=== PATIENT | female | born 1955 | race Caucasian/White ===

== ENCOUNTER 2021-06-13 15:46 | Inpatient (IN) | payer MEDICARE, MEDICAID ==
[~2021-06-13] VITALS: Ht 165.1 cm; Wt 111.6 kg
[2021-06-13] MEDS ORDERED: MORPHINE SULFATE 4 MG/ML CPJ (NOT FOR IM USE) IV STA (18:38)
[2021-06-13] MEDS ORDERED: ONDANSETRON HCL 4MG/2ML INJ IV STA (18:38)
[2021-06-13] MEDS ORDERED: SODIUM CHLORIDE 0.9% 1,000 ML IV ONE (18:45)
[2021-06-13 20:34] LABS: BASOPHILS % 0.3 % (0.0-2.0); HEMOGLOBIN. 13.7 g/dL (12.0-16.0); LYMPHOCYTES % 20.5 % (20.0-50.0); MEAN CORPUSCULAR HEMOGLOBIN 30.8 pg (28.0-32.0); MEAN CORPUSCULAR VOLUME 89.8 fL (81.0-99.0); MEAN PLATELET VOLUME 7.8 fl (7.4-10.4); MONOCYTES % 7.8 % (2.0-8.0); NEUTROPHILS % 68.4 % (40.0-76.0); PLATELET 200 x1000/uL (130-400); RED BLOOD CELL COUNT 4.45 mill/uL (4.2-5.4); RED CELL DISTRIBUTION WIDTH 13.3 % (11.6-14.6)
[2021-06-13 20:44] LABS: CHLORIDE 99 mEq/L (98-107)
[2021-06-13 20:46] LABS: PROTHROMBIN TIME 10.5 sec (9.6-11.0)
[2021-06-13] MEDS ORDERED: MORPHINE SULFATE 4 MG/ML CPJ (NOT FOR IM USE) IV PRN (23:30)
[2021-06-14] MEDS ORDERED: HYDROCODONE/ACETAMINOPHEN 5/325MG TABLET PO PRN (00:30)
[2021-06-14] MEDS ORDERED: LORAZEPAM 2MG/ML CPJ IV PRN (00:30)
[2021-06-14] MEDS ORDERED: SODIUM CHLORIDE 0.45% 1,000 ML IV SCH (00:30)
[2021-06-14] MEDS ORDERED: NA PHOS,M-B/NA PHOS,DI-BA ENEMA 118ML PR PRN (00:30)
[2021-06-14] MEDS ORDERED: IPRATROPIUM/ALBUTEROL 0.5-3(2.5)MG/3ML NEB NEB PRN (00:30)
[2021-06-14] MEDS ORDERED: MAGNESIUM/ALUMINUM HYDROXIDE/SIMETHICONE 30ML UDC PO PRN (00:30)
[2021-06-14] MEDS ORDERED: DIPHENHYDRAMINE 50MG/ML VIAL IV PRN (00:30)
[2021-06-14] MEDS ORDERED: DOCUSATE SODIUM 100MG CAPSULE PO PRN (00:30)
[2021-06-14] MEDS ORDERED: CLONIDINE 0.1MG TABLET PO PRN (00:30)
[2021-06-14] MEDS ORDERED: ONDANSETRON HCL 4MG/2ML INJ IV PRN (00:30)
[2021-06-14] MEDS ORDERED: GUAIFENESIN 200MG/10ML SUGAR FREE UDC PO PRN (00:30)
[2021-06-14] MEDS ORDERED: ACETAMINOPHEN 325MG TABLET PO PRN (00:30)
[2021-06-14] MEDS ORDERED: NALOXONE HCL 0.4MG/ML VIAL IV PRN (00:45)
[2021-06-14 02:20] VITALS: BP 133/50
[2021-06-14] MEDS ORDERED: LOSA1TAB40 MT (02:55)
[2021-06-14] MEDS ORDERED: METO25TA6 MT (02:55)
[2021-06-14 04:00] VITALS: BP 133/50
[2021-06-14] MEDS ORDERED: DEXTROSE 50% WATER 50ML SYRINGE IV PRN (04:00)
[2021-06-14] MEDS: MORPHINE SULFATE 2 MG/ML CPJ (NOT FOR IM USE) IV PRN (05:29)
[2021-06-14] MEDS: BLOOD SUGAR DIAGNOSTIC STRIP TEST SCH ×4 (07:41→21:07)
[2021-06-14 08:00] VITALS: BP 114/55
[2021-06-14] MEDS ORDERED: ENOXAPARIN 40MG/0.4ML SYR SUBCUT SCH (09:00)
[2021-06-14] MEDS: INSULIN LISPRO 100 UNITS/ML SUBCUT SCH ×4 (09:45→21:14)
[2021-06-14 12:00] VITALS: BP 133/68
[2021-06-14 16:00] VITALS: BP 114/52
[2021-06-14 20:00] VITALS: BP 143/71
[2021-06-14] MEDS: ENOXAPARIN 30MG/0.3ML SYR SUBCUT SCH (21:01)
[2021-06-15] VITALS: BP 133/62
[2021-06-15] MEDS: MORPHINE SULFATE 2 MG/ML CPJ (NOT FOR IM USE) IV PRN ×2 (03:34→23:42)
[2021-06-15 04:00] VITALS: BP 137/67
[2021-06-15 06:23] LABS: BASOPHILS % 0.4 % (0.0-2.0); HEMATOCRIT. 39.4 % (36.0-48.0); HEMOGLOBIN. 13.4 g/dL (12.0-16.0); LYMPHOCYTES % 20.8 % (20.0-50.0); MEAN CORPUSCULAR HEMOGLOBIN 30.5 pg (28.0-32.0); MEAN CORPUSCULAR VOLUME 89.8 fL (81.0-99.0); MEAN PLATELET VOLUME 8.7 fl (7.4-10.4); MONOCYTES % 7.3 % (2.0-8.0); NEUTROPHILS % 67.5 % (40.0-76.0); PLATELET 164 x1000/uL (130-400); RED BLOOD CELL COUNT 4.39 mill/uL (4.2-5.4); RED CELL DISTRIBUTION WIDTH 13.1 % (11.6-14.6)
[2021-06-15 06:31] LABS: CHLORIDE 100 mEq/L (98-107)
[2021-06-15 06:51] LABS: LDL CHOLESTEROL 134 mg/dL (5-100)
[2021-06-15 06:52] LABS: HDL CHOLESTEROL 35 mg/dL (40-59); T4 FREE 1.34 ng/dL (0.76-1.46)
[2021-06-15 08:00] VITALS: BP 116/64
[2021-06-15] MEDS: BLOOD SUGAR DIAGNOSTIC STRIP TEST SCH ×4 (08:11→21:13)
[2021-06-15] MEDS: ENOXAPARIN 30MG/0.3ML SYR SUBCUT SCH ×2 (09:04→21:06)
[2021-06-15] MEDS: INSULIN LISPRO 100 UNITS/ML SUBCUT SCH ×4 (09:16→21:08)
[2021-06-15 12:00] VITALS: BP 136/76
[2021-06-15 16:00] VITALS: BP 146/82
[2021-06-15 20:00] VITALS: BP 136/63
[2021-06-16] VITALS: BP 142/82
[2021-06-16 04:00] VITALS: BP 139/71
[2021-06-16] MEDS: BLOOD SUGAR DIAGNOSTIC STRIP TEST SCH ×2 (06:57→12:15)
[2021-06-16 08:00] VITALS: BP 140/84
[2021-06-16] MEDS: ENOXAPARIN 30MG/0.3ML SYR SUBCUT SCH (09:00)
[2021-06-16] MEDS: INSULIN LISPRO 100 UNITS/ML SUBCUT SCH ×2 (10:16→12:42)
[2021-06-16 12:00] VITALS: BP 142/68
[2021-06-16 16:00] VITALS: BP 145/77
[2021-06-16 16:48] VITALS: BP 145/77
== END 2021-06-16 17:31 | disposition home or self-care (01) | DRG 555 ==
LOC: ER 15:46 → EDBD 15:46 → 6EST 23:00 → CANRESERV 23:52 → ENRESERV 23:52 → EDBEDREQ 06-14 02:12
PROVIDERS: ADMIT Internal Medicine; ATTEND Internal Medicine
DX: M25.551 Pain in right hip (principal); G93.41 Metabolic encephalopathy; E86.0 Dehydration; M19.90 Unspecified osteoarthritis, unspecified site; R26.81 Unsteadiness on feet; W01.0XXA Fall on same level from slipping, tripping and stumbling without subsequent striking against object, initial encounter; E11.42 Type 2 diabetes mellitus with diabetic polyneuropathy; M79.651 Pain in right thigh; I10 Essential (primary) hypertension; Y93.89 Activity, other specified; Y92.89 Other specified places as the place of occurrence of the external cause; Z79.899 Other long term (current) drug therapy; Y99.8 Other external cause status
CPT/HCPCS: 36415; 71045; 73502; 73552; 80053; 80061; 82962; 83036; 84439; 84443; 84484; 85025; 86850; 86900; 93005; 97162; 99285; A6261; J1650; J1815; J2270; J2405; J7030; A4315